=== PATIENT | female | born 1945 | race Caucasian/White ===

== ENCOUNTER 2019-10-27 13:06 | Inpatient (IN) | payer MEDICARE ==
[~2019-10-27] VITALS: Ht 165.1 cm; Wt 68.0 kg
[2019-10-27] MEDS ORDERED: METF-440 PO (13:16)
[2019-10-27] MEDS ORDERED: OLAN5TAB3 PO (13:16)
[2019-10-27 13:31] LABS: BASOPHILS # (AUTO) 0.1 K/uL (0.0-8.0); BASOPHILS % (AUTO) 0.9 % (0.0-2.0); EOSINOPHILS # (AUTO) 0.2 K/uL (0.0-0.7); EOSINOPHILS % (AUTO) 2.5 % (0.0-7.0); HEMATOCRIT 41.2 % (31.2-41.9); HEMOGLOBIN 13.6 g/dL (10.9-14.3); LYMPHOCYTES # (AUTO) 2.6 K/uL (20.0-40.0); LYMPHOCYTES % (AUTO) 28.7 % (20.5-51.5); MEAN CORPUSCULAR HEMOGLOBIN 29.9 uug (24.7-32.8); MEAN CORPUSCULAR HGB CONC 33 g/dL (32.3-35.6); MEAN CORPUSCULAR VOLUME 90.4 fL (75.5-95.3); MONOCYTES # (AUTO) 0.7 K/uL (2.0-10.0); MONOCYTES % (AUTO) 7.4 % (0.0-11.0); NEUTROPHILS # (AUTO) 5.4 K/uL (1.8-8.9); NEUTROPHILS % (AUTO) 60.5 % (38.5-71.5); PLATELET COUNT (AUTO) 383 K/uL (179-408); RED BLOOD CELL COUNT(AUTO) 4.56 MIL/uL (3.63-4.92); WHITE BLOOD COUNT (AUTO) 8.9 K/uL (3.8-11.8)
[2019-10-27 13:39] LABS: ALANINE AMINOTRANSFERASE 16 U/L (14-59); ALKALINE PHOSPHATASE 97 U/L (50-136); ASPARTATE AMINOTRANSFERASE 7 U/L (15-37); BILIRUBIN,DIRECT < 0.1 mg/dL (0.0-0.2); BILIRUBIN,TOTAL 0.2 mg/dL (0.2-1.0); CARBON DIOXIDE 30 mmol/L (21-32); CHLORIDE 104 mmol/L (98-107); GLUCOSE 269 mg/dL (74-106); POTASSIUM 3.9 mmol/L (3.5-5.1); TOTAL PROTEIN, SERUM 7.2 g/dL (6.4-8.2); UREA NITROGEN, BLOOD 13 mg/dL (7-18)
[2019-10-27 13:40] LABS: ETHANOL < 3 MG/DL (0-0)
--- NOTE | 2019-10-27 13:41 | NUR ---
PT IS IN ROOM #1B. DR CHAMBERS EVALUATED THE PT.
[2019-10-27 13:48] LABS: THYROID STIMULATING HORMONE 3.431 mIU/mL (0.358-3.740)
[2019-10-27 14:48] LABS: *BILIRUBIN,URIN NEGATIVE (NEGATIVE); *BLOOD, URINE NEGATIVE (NEGATIVE); *CLARITY,URINE CLEAR (CLEAR); *COLOR,URINE YELLOW (YELLOW); *KETONES,URINE NEGATIVE (NEGATIVE); *UROBILINOGEN,URINE 0.2 E.U./dl (NORMAL); LEUKOCYTE ESTERASE ,URINE NEGATIVE (NEGATIVE); NITRITE, URINE NEGATIVE (NEGATIVE)
[2019-10-27 14:52] LABS: UGLUCOSE 1+ (NEGATIVE)
[2019-10-27 15:03] LABS: *AMPHETAMINE, URINE NEGATIVE (NEGATIVE); *BARBITURATE, URINE NEGATIVE (NEGATIVE); *CANNABINOID, URINE NEGATIVE (NEGATIVE); *COCCAINE, URINE NEGATIVE (NEGATIVE); *OPIATE, URINE NEGATIVE (NEGATIVE); *PHENCYCLIDINE SCREEN,URINE NEGATIVE (NEGATIVE)
[2019-10-27] MEDS ORDERED: BLOOD SUGAR DIAGNOSTIC 1 EACH STRIP VI ONE (15:30)
[2019-10-27] MEDS ORDERED: MAGNESIUM HYDROXIDE 30 ML LIQUID UDC PO PRN (15:30)
[2019-10-27] MEDS ORDERED: MAG HYDROX/AL HYDROX/SIMETH 30 ML LIQUID UDC PO PRN (15:30)
--- NOTE | 2019-10-27 15:56 | NUR ---
REPORT WAS GIVEN TO RN MHU. PT WAS TRANSFERED TO MHU ROOM #141A.
[2019-10-27 16:15] VITALS: BP 108/76
--- NOTE | 2019-10-27 16:45 | NUR ---
Pt was admitted from ER at 1615 via wheelchair. Pt came to [facility] due to paranoia and believing that nery is after her and wanting to harm unknown people. Upon admission, patient is cooperative, confirms paranoia saying that someone named Yaya is sitting on her back and performs black magic on her burning her back. Pt states that it has been happening for 25 weeks. and that no one can see him, but she knows that he is there. Pt was cooperative with admission process. Skin is intact. Pt declined notification of next of kin. Dr. Carlos was notified.
[2019-10-27] MEDS: METFORMIN HCL 500 MG TABLET PO SCH (18:07)
--- NOTE | 2019-10-27 20:00 | NUR ---
received patient in her room in bed. she is noted awake A/O x 3. Able to ambulate with steady gait and able to make her needs know. Upon interview, patient stated that she is here in the hospital because, "I had a nerve brake down" and she needed help. she also, added that "I can read minds". patient noted calm at this time, but delusional and responding to internal stimuli. V/S stable at this time. patient is reassured for her safety. safety and fall precaution in place: bed at lowest position with wheels locked and room free from clutter and well-lit and frequents head checks. will [id number] to monitor.
[2019-10-27 20:12] VITALS: BP 138/57
[2019-10-28 07:30] VITALS: BP 131/67
[2019-10-28 07:34] LABS: BILIRUBIN,TOTAL 0.5 mg/dL (0.2-1.0); CREATININE 1.1 mg/dL (0.6-1.3); TOTAL PROTEIN, SERUM 7.7 g/dL (6.4-8.2)
[2019-10-28] MEDS: METFORMIN HCL 500 MG TABLET PO SCH ×2 (09:06→18:37)
--- NOTE | 2019-10-28 11:33 | NUR ---
FAMILY CONTACT: SW spoke with pts friend Mariely ([phone]) for collateral information and treatment/discharge planning. Per friend she states she has been pts friend for 19 years and states she is the only person pt has in her life. She states that pts 10 years ago and states that pt has been living alone since then. 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 She states that she moved in with pt in May for 2 weeks to help pt with ADL's but states that after she moved in pt began acting "weird" and began accusing her of stealing and stating that people were following her. Mariely states that pt ran out of her medication recently and that is when she became more psychotic and states she is the one who brought pt to the hospital. Per friend she wishes for pt to return home under her care and states she she will pick pt up from the hospital and transport home. Mariely states pt is under the care of psychiatrist Dr. Lalito Vargas [address] [facility] [address] [address] Long Toledo [address] [facility] [address], [place] [address] .
--- NOTE | 2019-10-28 12:03 | NUR ---
INITIAL DISCHARGE PLAN: Per friend Mariely ([phone]) she wishes for pt to return home [address] [facility] [address] under her care. Friend will pick pt up and transport home. SW will help form a safe and proper discharge in collaboration with .
[2019-10-28] MEDS ORDERED: DEXTROSE 50% 50 ML DISP.SYRIN IV PRN (15:15)
[2019-10-28 16:39] VITALS: BP 137/61
[2019-10-28] MEDS: BLOOD SUGAR DIAGNOSTIC 1 EACH STRIP VI SCH ×2 (16:54→21:03)
[2019-10-28] MEDS: INSULIN REGULAR, HUMAN 300 UNIT/3 ML VIAL SQ PRN (20:56)
[2019-10-28] MEDS ORDERED: QUETIAPINE FUMARATE 200 MG TABLET PO SCH ×2 (21:00)
[2019-10-28 21:20] VITALS: BP 141/69
[2019-10-29] MEDS: BLOOD SUGAR DIAGNOSTIC 1 EACH STRIP VI SCH ×4 (06:50→21:42)
[2019-10-29 07:30] VITALS: BP 135/73
[2019-10-29] MEDS: INSULIN REGULAR, HUMAN 300 UNIT/3 ML VIAL SQ PRN ×2 (08:29→11:40)
[2019-10-29] MEDS: METFORMIN HCL 500 MG TABLET PO SCH ×2 (08:44→18:09)
[2019-10-29 15:36] VITALS: BP 147/67
[2019-10-29 20:00] VITALS: BP 157/88
[2019-10-29] MEDS: QUETIAPINE FUMARATE 200 MG TABLET PO SCH (21:32)
[2019-10-29] MEDS: TEMAZEPAM 7.5 MG CAPSULE PO PRN (21:42)
[2019-10-30] MEDS: BLOOD SUGAR DIAGNOSTIC 1 EACH STRIP VI SCH ×4 (06:58→21:51)
[2019-10-30 07:30] VITALS: BP 100/65
[2019-10-30] MEDS: INSULIN REGULAR, HUMAN 300 UNIT/3 ML VIAL SQ PRN ×2 (08:21→11:55)
[2019-10-30] MEDS: METFORMIN HCL 500 MG TABLET PO SCH ×2 (08:23→17:39)
[2019-10-30 16:00] VITALS: BP 115/61
[2019-10-30 20:00] VITALS: BP 123/58
[2019-10-30] MEDS: QUETIAPINE FUMARATE 200 MG TABLET PO SCH (21:38)
[2019-10-30] MEDS: TEMAZEPAM 7.5 MG CAPSULE PO PRN (21:39)
[2019-10-31 07:30] VITALS: BP 115/60
[2019-10-31] MEDS: BLOOD SUGAR DIAGNOSTIC 1 EACH STRIP VI SCH ×4 (07:47→20:53)
[2019-10-31] MEDS: INSULIN REGULAR, HUMAN 300 UNIT/3 ML VIAL SQ PRN ×2 (07:52→12:10)
[2019-10-31] MEDS: METFORMIN HCL 500 MG TABLET PO SCH ×2 (07:58→18:39)
[2019-10-31 15:25] VITALS: BP 120/54
--- NOTE | 2019-10-31 18:30 | NUR ---
Gps/Political Science Professor- Hesitancy in taking her metformin 1000 mg this pm, claimed it was different shapes, and it taste salty, informed and explained to patient it comes in diff, shapes depending on the maker ,was able to take med. after prompting.
[2019-10-31 20:32] VITALS: BP 147/74
[2019-10-31] MEDS: QUETIAPINE FUMARATE 200 MG TABLET PO SCH (20:53)
[2019-10-31] MEDS: TEMAZEPAM 7.5 MG CAPSULE PO PRN (22:52)
--- NOTE | 2019-11-01 06:05 | NUR ---
Patient slept 7.45 hours last night. Prior to going to bed , patient c/o being hungry and was given food. No behavioral issues during the night. Continuing to monitor for safety, blood glucose and behavioral issues.
[2019-11-01] MEDS: BLOOD SUGAR DIAGNOSTIC 1 EACH STRIP VI SCH ×4 (06:28→20:33)
[2019-11-01 07:05] LABS: BASOPHILS # (AUTO) 0.1 K/uL (0.0-8.0); BASOPHILS % (AUTO) 1.2 % (0.0-2.0); EOSINOPHILS # (AUTO) 0.3 K/uL (0.0-0.7); EOSINOPHILS % (AUTO) 4.4 % (0.0-7.0); HEMATOCRIT 39.4 % (31.2-41.9); HEMOGLOBIN 12.9 g/dL (10.9-14.3); LYMPHOCYTES # (AUTO) 2.2 K/uL (20.0-40.0); LYMPHOCYTES % (AUTO) 39.1 % (20.5-51.5); MEAN CORPUSCULAR HEMOGLOBIN 29.7 uug (24.7-32.8); MEAN CORPUSCULAR HGB CONC 33 g/dL (32.3-35.6); MEAN CORPUSCULAR VOLUME 90.7 fL (75.5-95.3); MONOCYTES # (AUTO) 0.4 K/uL (2.0-10.0); MONOCYTES % (AUTO) 7.4 % (0.0-11.0); NEUTROPHILS # (AUTO) 2.7 K/uL (1.8-8.9); NEUTROPHILS % (AUTO) 47.9 % (38.5-71.5); PLATELET COUNT (AUTO) 294 K/uL (179-408); RED BLOOD CELL COUNT(AUTO) 4.34 MIL/uL (3.63-4.92); WHITE BLOOD COUNT (AUTO) 5.6 K/uL (3.8-11.8)
[2019-11-01 07:25] LABS: CREATININE 0.9 mg/dL (0.6-1.3); MAGNESIUM 1.6 mg/dL (1.8-2.4); PHOSPHOROUS 4.1 mg/dL (2.5-4.9); POTASSIUM 4.1 mmol/L (3.5-5.1)
[2019-11-01 07:30] VITALS: BP 135/57
[2019-11-01] MEDS: METFORMIN HCL 500 MG TABLET PO SCH ×2 (08:26→17:40)
[2019-11-01] MEDS ORDERED: MAGNESIUM OXIDE 400 MG TABLET PO ONE (10:30)
[2019-11-01 15:49] VITALS: BP 143/56
[2019-11-01] MEDS: INSULIN REGULAR, HUMAN 300 UNIT/3 ML VIAL SQ PRN ×2 (16:37→20:36)
[2019-11-01 20:00] VITALS: BP 134/60
[2019-11-01] MEDS: QUETIAPINE FUMARATE 200 MG TABLET PO SCH (20:24)
[2019-11-02] MEDS: BLOOD SUGAR DIAGNOSTIC 1 EACH STRIP VI SCH ×4 (06:32→20:59)
[2019-11-02 07:50] VITALS: BP 113/62
[2019-11-02] MEDS: METFORMIN HCL 500 MG TABLET PO SCH ×2 (08:12→18:57)
[2019-11-02 15:15] VITALS: BP 121/49
[2019-11-02] MEDS: INSULIN REGULAR, HUMAN 300 UNIT/3 ML VIAL SQ PRN (16:30)
[2019-11-02 20:31] VITALS: BP 133/63
[2019-11-02] MEDS: QUETIAPINE FUMARATE 200 MG TABLET PO SCH (21:00)
[2019-11-02] MEDS: MIRTAZAPINE 15 MG TABLET PO SCH (21:01)
[2019-11-03] MEDS: TEMAZEPAM 7.5 MG CAPSULE PO PRN ×2 (03:00→22:18)
--- NOTE | 2019-11-03 05:07 | NUR ---
GPS: RECEIVED PT UP IN NURSING STATION, ANGRY AT STAFFS FOR NO APPARENT REASON. PT PACING BACK AND FORTH. VERBALLY ABLE TO MAKE SOME NEEDS KNOWN BUT DISORGANIZED THOUGHT PROCESS AND POOR INSIGHT. REDIRECTED AND FREQUENT REALITY CHECKED DONE. PT WAS COOPERATIVE WITH DUE MEDICATIONS AND REQUESTED FOR SLEEPING AID BECAUSE SHE CAN NOT SLEEP. ADMINISTERED ORDER AND NOTED EFFECTIVENESS. CONTINUE MONITOR PT AND NO NEW BEHAVIOR NOTED.
[2019-11-03] MEDS: BLOOD SUGAR DIAGNOSTIC 1 EACH STRIP VI SCH ×4 (07:04→20:20)
[2019-11-03 07:30] VITALS: BP 136/53
--- NOTE | 2019-11-03 08:00 | NUR ---
GPS: RECEIVED PATIENT AOX3. PATIENT DENIES ANY SI AND HI, PATIENT STILL VERBALIZES ABOUT HER DELUSION AND SOMEWHAT PARANOID ABOUT THE SOLOMON ISLANDER MAFIA , PATIENT QUIET, REDIRECTABLE, COMPLIANT WITH MEDICATION, ATE HER BREAKFAST ATTENDED GROUP ACTIVITIES, WILL CONTINUE MONITOR
[2019-11-03] MEDS: METFORMIN HCL 500 MG TABLET PO SCH ×2 (08:37→17:35)
[2019-11-03] MEDS: INSULIN REGULAR, HUMAN 300 UNIT/3 ML VIAL SQ PRN ×2 (11:35→16:06)
--- NOTE | 2019-11-03 12:14 | NUR ---
FRIEND CONTACT: MATT spoke with pts friend Mariely ([phone]) and provided her with updated information.
[2019-11-03 16:05] VITALS: BP 129/60
[2019-11-03 20:05] VITALS: BP 129/69
[2019-11-03] MEDS: QUETIAPINE FUMARATE 200 MG TABLET PO SCH ×2 (20:20→21:25)
[2019-11-03] MEDS: MIRTAZAPINE 15 MG TABLET PO SCH (20:20)
[2019-11-03] MEDS: QUETIAPINE FUMARATE 25 MG TABLET PO SCH ×2 (20:20→21:26)
[2019-11-03] MEDS ORDERED: QUETIAPINE FUMARATE 200 MG TABLET PO SCH (21:00)
[2019-11-04] MEDS: BLOOD SUGAR DIAGNOSTIC 1 EACH STRIP VI SCH ×5 (06:31→20:23)
--- NOTE | 2019-11-04 06:48 | NUR ---
PT SLEPT 7 H. PT REFUSED HER REMERON MEDICATION. REMERON WASTED IN THE PYXIS. PT AT FIRST REFUSED HER SEROQUEL AND AFTER A WHILE WANTS IT SO ON THE EMAR IT WAS NOTED UNDO FOR THE NON-ADMINISTERED . PT TOOK THE SEROQUEL. PT TOOK RESTORIL AT 2218H PER PT REQUEST. PT IN NO ACUTE DISTRESS. PT SOMEWHAT ANXIOUS AND PARANOID ON HER MEDICATIONS. PT NEEDS REORIENTATION. PT MOOD WAS IRRITABLE. AFFECT IS LABILE . JUDGEMENT IS POOR. BLOO SUGAR WAS 118 AND 102. SAFETY AND COMFORT PROVIDED. WILL ENDORSE TO INCOMING NURSE.
[2019-11-04 07:30] VITALS: BP 111/62
--- NOTE | 2019-11-04 08:00 | NUR ---
GPS: received patient AOx2, patient paranoid delusional, responding to internal stimuli, patient able to do her ADL, no distress at this time
[2019-11-04] MEDS: METFORMIN HCL 500 MG TABLET PO SCH ×2 (08:14→17:48)
[2019-11-04] MEDS: INSULIN REGULAR, HUMAN 300 UNIT/3 ML VIAL SQ PRN (11:28)
--- NOTE | 2019-11-04 16:01 | NUR ---
MATT Coordination of Care: SW called patient's Psychiatrist Dr. Lalito Vargas [address] [address] ([phone]) to scheduled aftercare appointment and was informed that this doctor terminated services with the patient.
[2019-11-04 16:47] VITALS: BP 146/64
--- NOTE | 2019-11-04 18:06 | NUR ---
patient been compliant, no distress, patient took her medication compliant ,
[2019-11-04] MEDS: MIRTAZAPINE 15 MG TABLET PO SCH (20:10)
[2019-11-04] MEDS: QUETIAPINE FUMARATE 200 MG TABLET PO SCH (20:11)
[2019-11-04 20:59] VITALS: BP 167/68
--- NOTE | 2019-11-04 21:20 | NUR ---
Patient had BS:135 on Accucheck @2100. Refused 2 units insulin coverage. Risks and benefits explained, still refused. Continue to monitor.
[2019-11-04] MEDS: TEMAZEPAM 7.5 MG CAPSULE PO PRN (21:39)
--- NOTE | 2019-11-04 22:33 | NUR ---
Received patient in bed, AAO x3. Depressed mood. Calm and cooperative. No behavioral issues. Denies SI. Compliant with medication. Continue to monitor.
[2019-11-05] MEDS: ACETAMINOPHEN 325 MG TABLET PO PRN ×2 (05:25→14:06)
[2019-11-05] MEDS: BLOOD SUGAR DIAGNOSTIC 1 EACH STRIP VI SCH ×4 (06:37→20:49)
[2019-11-05 07:30] VITALS: BP 144/69
[2019-11-05] MEDS: METFORMIN HCL 500 MG TABLET PO SCH ×2 (08:35→18:41)
[2019-11-05] MEDS: INSULIN REGULAR, HUMAN 300 UNIT/3 ML VIAL SQ PRN ×2 (12:11→20:52)
--- NOTE | 2019-11-05 14:50 | NUR ---
MATT Individual Therapy Note: SW met with patient for brief individual counseling to address patient's persecutory delusions. Patient presents paranoid and delusional. Patient is mostly seen in the dining room coloring and drawing. Patient makes poor eye contact and refuses to engage in a conversation with this song writer. SW attempted to engage patient by asking her how she is doing, however patient is selectively mute and does not respond.
[2019-11-05 16:00] VITALS: BP 124/70
--- NOTE | 2019-11-05 16:16 | NUR ---
Received Pt in dinning room working on art project, AAO x3, no acute distress noted, able to make needs known. Pleasant upon approach, calm, and cooperative with taking medications, refusing morning coverage of insulin but accepting afternoons. No behavioral issues, able to CFS and denies SI and HI. Reported back pain related to Sciatica, Tylenol administered per PRN orders. Reported effective. Will continue to monitor for safety.
[2019-11-05 20:00] VITALS: BP 118/51
[2019-11-05] MEDS: MIRTAZAPINE 15 MG TABLET PO SCH (20:49)
[2019-11-05] MEDS: QUETIAPINE FUMARATE 200 MG TABLET PO SCH (20:49)
[2019-11-06] MEDS: BLOOD SUGAR DIAGNOSTIC 1 EACH STRIP VI SCH ×4 (06:37→20:58)
--- NOTE | 2019-11-06 06:45 | NUR ---
Patient sleeping intermittently arousing to verbal response. Patient compliant with medication. slept for 7hrs during the shift . BS check done with the result 149.No behaviral problems noted. Took shower in the AM
[2019-11-06 07:30] VITALS: BP 118/50
[2019-11-06] MEDS: METFORMIN HCL 500 MG TABLET PO SCH ×3 (08:01→17:30)
[2019-11-06] MEDS: INSULIN REGULAR, HUMAN 300 UNIT/3 ML VIAL SQ PRN ×3 (08:06→21:09)
[2019-11-06] MEDS: ACETAMINOPHEN 325 MG TABLET PO PRN (15:43)
[2019-11-06 16:13] VITALS: BP 163/66
--- NOTE | 2019-11-06 17:52 | NUR ---
no acute distress noted, no agitated behavior noted, denied suicidal thoughts, participated with adls and activities.
[2019-11-06] MEDS: MIRTAZAPINE 15 MG TABLET PO SCH (20:30)
[2019-11-06] MEDS ORDERED: QUETIAPINE FUMARATE 100 MG TABLET PO SCH (21:00)
[2019-11-06] MEDS: TEMAZEPAM 7.5 MG CAPSULE PO PRN (21:02)
[2019-11-07] MEDS: BLOOD SUGAR DIAGNOSTIC 1 EACH STRIP VI SCH ×4 (06:30→20:41)
[2019-11-07 07:30] VITALS: BP 103/55
--- NOTE | 2019-11-07 08:00 | NUR ---
GPS: received patient AOx2, patient delusional, paranoid, patient today refused her metformin, even after educating the benefits patient refuse it, md luo
[2019-11-07] MEDS: METFORMIN HCL 500 MG TABLET PO SCH ×3 (08:07→17:31)
[2019-11-07] MEDS: INSULIN REGULAR, HUMAN 300 UNIT/3 ML VIAL SQ PRN ×2 (11:47→20:43)
[2019-11-07 16:00] VITALS: BP 152/64
--- NOTE | 2019-11-07 18:14 | NUR ---
patient been calm, doing her artwork in the dining room, patient refused her metformin, no distress at this time
[2019-11-07 20:00] VITALS: BP 146/71
[2019-11-07] MEDS: MIRTAZAPINE 15 MG TABLET PO SCH (20:41)
[2019-11-07] MEDS: QUETIAPINE FUMARATE 200 MG TABLET PO SCH (20:41)
[2019-11-08] MEDS: TEMAZEPAM 7.5 MG CAPSULE PO PRN (01:45)
[2019-11-08] MEDS: BLOOD SUGAR DIAGNOSTIC 1 EACH STRIP VI SCH ×4 (06:41→20:00)
[2019-11-08 07:30] VITALS: BP 150/69
--- NOTE | 2019-11-08 08:00 | NUR ---
GPS: patient AOx2, patient seen in the dining room doing artwork, patient refused her metformin, however compliant with insulin, patient denies SI and HI, no distress at this time
[2019-11-08] MEDS: INSULIN REGULAR, HUMAN 300 UNIT/3 ML VIAL SQ PRN ×4 (08:13→20:00)
[2019-11-08] MEDS: METFORMIN HCL 500 MG TABLET PO SCH ×2 (09:00→17:56)
--- NOTE | 2019-11-08 15:01 | NUR ---
MATT Individual Therapy Note: SW met with patient for brief individual counseling to address patient's persecutory delusions. Patient continues to present with paranoid and delusional thought process. SW attempted to engage with patient, however patient is only focused on coloring and drawing and did not acknowledge this junior copywriter.
[2019-11-08 15:38] VITALS: BP 127/63
--- NOTE | 2019-11-08 18:21 | NUR ---
patient been working on her artwork, patient calm cooperative, refused her metformin, MD aware, patient compliant with insulin, patient of her DC planning and been cooperative, will continue monitor
[2019-11-08 20:00] VITALS: BP 145/73
[2019-11-08] MEDS: QUETIAPINE FUMARATE 200 MG TABLET PO SCH (20:01)
[2019-11-08] MEDS: MIRTAZAPINE 15 MG TABLET PO SCH (20:01)
--- NOTE | 2019-11-08 20:59 | NUR ---
Received pt watching tv in the dining room. No acute distress noted. No complaints of pain/ discomfort. Denies SI/HI. Accucheck 175, but pt refused insulin. Pt stated that she's been getting too much insulin in a day and it's too much for her. Safety measures maintained. Will continue to monitor.
[2019-11-09] MEDS: BLOOD SUGAR DIAGNOSTIC 1 EACH STRIP VI SCH ×4 (06:30→20:24)
[2019-11-09 07:30] VITALS: BP 128/60
--- NOTE | 2019-11-09 08:00 | NUR ---
Social Work Discharge Note: Patient will be discharged back home [address] [place] [address]. Patients friend, Mariely ([phone]) will provide transportation for the patient back home at 5PM. Patient presents with appropriate mood and congruent affect. Patient is aware and agreeable with discharge plan. Patient denies suicidal or homicidal ideation. Patient is referred to [facility] [address] [place] [address] ([phone]) for psychiatry services and has an appointment scheduled on November 15, 2019 at 1PM for intake evaluation with Bruna nursing supervisor type photography. Patient will be following up with her (Media Manager) Dr. Long Toledo [address] [place] [phone] ([phone]) and has an appointment scheduled on November 17, 2019 at 2:30PM. Patient is also referred to [facility]. ( ).
[2019-11-09] MEDS: METFORMIN HCL 500 MG TABLET PO SCH ×2 (08:07→18:30)
--- NOTE | 2019-11-09 15:43 | NUR ---
will be discharged Patient back home today . Patients friend, Mariely will provide transportation for the patient back home at 5PM. . Patient is aware and agreeable with discharge plan. Patient denies suicidal or homicidal ideation. vital sign stable all personal belonging taken by patient.
[2019-11-09 16:36] VITALS: BP 158/86
--- NOTE | 2019-11-09 18:23 | NUR ---
patient's friend Mariely here to orange picker machine operator patient, patient become agitated aggressive and psychotic refused to go home with her friend.verbally abused toward to her friend.Dr. Carlos notified and D/C discharged.
--- NOTE | 2019-11-09 18:31 | NUR ---
patient paranoid and delusional, patient verbalizes that "she is the one who put me in this hospital i will not with her, call CP." when asked whose CP is patient cannot recall, and cannot give detail of that person, patient start bbeing beligerent and paranoid saying that the tree gabriel will just pick her up, patient was sent back to her room and called Dr. Carlos about the matter, Dr. Carlos DC the discharge order , patient stays in her room and was aware of the order
[2019-11-09] MEDS: MIRTAZAPINE 15 MG TABLET PO SCH (20:11)
[2019-11-09] MEDS: QUETIAPINE FUMARATE 200 MG TABLET PO SCH (20:11)
[2019-11-09 20:37] VITALS: BP 160/72
[2019-11-09] MEDS: INSULIN REGULAR, HUMAN 300 UNIT/3 ML VIAL SQ PRN (20:43)
--- NOTE | 2019-11-10 06:32 | NUR ---
Pt slept 6.15 hrs. Refused shower in am. Blood sugar 151.
[2019-11-10] MEDS: BLOOD SUGAR DIAGNOSTIC 1 EACH STRIP VI SCH ×4 (06:37→20:20)
[2019-11-10 07:30] VITALS: BP 135/57
[2019-11-10] MEDS: QUETIAPINE FUMARATE 100 MG TABLET PO SCH (08:52)
[2019-11-10] MEDS: INSULIN REGULAR, HUMAN 300 UNIT/3 ML VIAL SQ PRN ×4 (08:54→20:23)
[2019-11-10] MEDS: METFORMIN HCL 500 MG TABLET PO SCH ×2 (08:57→17:42)
[2019-11-10 16:00] VITALS: BP 153/58
[2019-11-10] MEDS: HALOPERIDOL 5 MG TABLET PO SCH ×2 (16:14→17:41)
[2019-11-10 20:00] VITALS: BP 138/71
[2019-11-10] MEDS: MIRTAZAPINE 15 MG TABLET PO SCH (20:18)
[2019-11-10] MEDS: QUETIAPINE FUMARATE 200 MG TABLET PO SCH (20:18)
--- NOTE | 2019-11-10 21:00 | NUR ---
Patient alert x2 ,ambulates in the hallway, appears calm, compliant with medication, BS checked and insulin per sliding scale given, then patient asked for phone to make call phones to someone stated "I dont' feel safe here"Redirected Patient and Restoril given per Patient request .Will continue to monitor.
[2019-11-10] MEDS: TEMAZEPAM 7.5 MG CAPSULE PO PRN (23:06)
[2019-11-11] MEDS: BLOOD SUGAR DIAGNOSTIC 1 EACH STRIP VI SCH ×4 (06:52→20:15)
--- NOTE | 2019-11-11 07:01 | NUR ---
Patient slept 5 hrs. No behaviors issues noted.BS 190
[2019-11-11 07:30] VITALS: BP 114/48
[2019-11-11] MEDS: QUETIAPINE FUMARATE 100 MG TABLET PO SCH (08:49)
[2019-11-11] MEDS: HALOPERIDOL 5 MG TABLET PO SCH ×2 (08:49→16:53)
[2019-11-11] MEDS: METFORMIN HCL 500 MG TABLET PO SCH ×2 (08:49→16:58)
[2019-11-11] MEDS: INSULIN REGULAR, HUMAN 300 UNIT/3 ML VIAL SQ PRN ×3 (08:52→20:26)
--- NOTE | 2019-11-11 13:08 | NUR ---
MATT Individual Therapy Note: SW met with patient for brief individual counseling to address patient's persecutory delusions. Patient continues to present with paranoid and delusional thought process. SW attempted to engage with patient, patient has been focused on drawing. Patient continues to state that she will go home to the "[place]". This automobile and property underwriter actively listened.
[2019-11-11 15:21] VITALS: BP 133/58
--- NOTE | 2019-11-11 16:59 | NUR ---
Gps/Casing Mixer- Patient refusing to take metformin, claimed she takes Januvia at home..Remain guarded, flat affect, attended her group therapy, likes to do arts per pt.
[2019-11-11 20:00] VITALS: BP 132/60
[2019-11-11] MEDS: QUETIAPINE FUMARATE 200 MG TABLET PO SCH (20:15)
[2019-11-11] MEDS: MIRTAZAPINE 15 MG TABLET PO SCH (20:15)
[2019-11-12 01:43] VITALS: BP 132/60
[2019-11-12] MEDS: BLOOD SUGAR DIAGNOSTIC 1 EACH STRIP VI SCH ×4 (06:43→20:26)
[2019-11-12 07:30] VITALS: BP 114/62
[2019-11-12] MEDS: QUETIAPINE FUMARATE 100 MG TABLET PO SCH (08:24)
[2019-11-12] MEDS: HALOPERIDOL 5 MG TABLET PO SCH ×2 (08:24→16:29)
[2019-11-12] MEDS: METFORMIN HCL 500 MG TABLET PO SCH ×2 (08:25→17:53)
[2019-11-12] MEDS: INSULIN REGULAR, HUMAN 300 UNIT/3 ML VIAL SQ PRN ×3 (11:27→20:30)
[2019-11-12 16:00] VITALS: BP 115/61
--- NOTE | 2019-11-12 17:00 | NUR ---
Gps/Extended Insurance Clerk- Interactrive with the staff, making her needs known, stayed in the activity room most of the time, likes to draw, do coloring.Still refusing to take metformin, claimed will not take it ever, she takes januvia at home, will resume taking when she gets home per pt.
[2019-11-12 20:00] VITALS: BP 146/57
[2019-11-12] MEDS: MIRTAZAPINE 15 MG TABLET PO SCH (20:30)
[2019-11-12] MEDS: QUETIAPINE FUMARATE 200 MG TABLET PO SCH (20:30)
[2019-11-12] MEDS: TEMAZEPAM 7.5 MG CAPSULE PO PRN (21:14)
[2019-11-13] MEDS: CLONAZEPAM 0.5 MG TABLET PO PRN ×2 (01:33→21:02)
--- NOTE | 2019-11-13 06:46 | NUR ---
Patient had difficulty falling asleep and then staying asleep. Medicated per order, patient was up a few times at the nurses station asking for " Ice and water and a straw" then " a comb". then " Something to help me go back to sleep. Patient c/o the bed being wet, but when checked by documentation writer it was dry. Total sleep was 7 hours and patient got up early and is watching TV. No distress or issues noted at this time.
[2019-11-13] MEDS: BLOOD SUGAR DIAGNOSTIC 1 EACH STRIP VI SCH ×4 (06:52→21:02)
[2019-11-13 07:30] VITALS: BP 115/42
[2019-11-13] MEDS: HALOPERIDOL 5 MG TABLET PO SCH ×2 (08:19→17:01)
[2019-11-13] MEDS: METFORMIN HCL 500 MG TABLET PO SCH ×2 (08:19→18:30)
[2019-11-13] MEDS: QUETIAPINE FUMARATE 100 MG TABLET PO SCH (08:20)
[2019-11-13] MEDS: INSULIN REGULAR, HUMAN 300 UNIT/3 ML VIAL SQ PRN ×2 (12:21→17:00)
[2019-11-13 16:00] VITALS: BP 123/62
[2019-11-13] MEDS: MIRTAZAPINE 15 MG TABLET PO SCH (21:01)
[2019-11-13] MEDS: QUETIAPINE FUMARATE 200 MG TABLET PO SCH (21:01)
[2019-11-13] MEDS: ACETAMINOPHEN 325 MG TABLET PO PRN (21:01)
[2019-11-13 21:35] VITALS: BP 149/65
[2019-11-13] MEDS: TEMAZEPAM 7.5 MG CAPSULE PO PRN (23:20)
--- NOTE | 2019-11-14 02:30 | NUR ---
RECEIVED PATIENT IN HER ROOM.FEW MINUTES LATER I SAW HER ON THE FLOOR OF THE HALLWAY. ASSESSED HER AND HELPED HER GET UP WITH NO OBVIOUS INJURY.AFTER THIS SHE SAID "I CANT DO THIS ANYMORE'. EXPRESSED PARANOID DELUSIONS OF SEEING 'A MAN ON TOP OF ME WITH SEBAS ROBINS FACE DOING BLACK MAGIC ON ME". MOOD IS LABILE. SAID TO HAVE CALLED 911 ON THE PHONE. SHE HOWEVER TOOK HER MEDICATIONS AND WENT BACK TO BED AFTER SOME SLEEP AID HAS BEEN GIVEN. BLOOD SUGAR CHECKS 130 WITH NO COVERAGE. VISUAL CHECKS MADE ON HER FOR SAFETY. WILL CONTINUE TO MONITOR.
--- NOTE | 2019-11-14 06:46 | NUR ---
SLEPT FOR 6:30 HOURS.BLOOD SUGAR CHECKS 128.
[2019-11-14 07:30] VITALS: BP 137/44
[2019-11-14] MEDS: BLOOD SUGAR DIAGNOSTIC 1 EACH STRIP VI SCH ×4 (07:45→20:51)
[2019-11-14] MEDS: METFORMIN HCL 500 MG TABLET PO SCH ×2 (08:35→18:30)
[2019-11-14] MEDS: HALOPERIDOL 5 MG TABLET PO SCH ×2 (08:35→16:48)
[2019-11-14] MEDS: QUETIAPINE FUMARATE 100 MG TABLET PO SCH (08:35)
[2019-11-14] MEDS: INSULIN REGULAR, HUMAN 300 UNIT/3 ML VIAL SQ PRN ×2 (11:43→16:52)
--- NOTE | 2019-11-14 13:29 | NUR ---
Gps/Concrete Form Setter And Finisher- Attended her group therapy, likes to draw. Not interactive but making her simple needs known to the staff.
[2019-11-14 16:00] VITALS: BP 101/71
[2019-11-14] MEDS: glipiZIDE 5 MG TABLET PO SCH (16:48)
[2019-11-14] MEDS: CLONAZEPAM 0.5 MG TABLET PO PRN (18:37)
[2019-11-14 20:00] VITALS: BP 141/63
[2019-11-14] MEDS: QUETIAPINE FUMARATE 200 MG TABLET PO SCH (20:51)
[2019-11-14] MEDS: MIRTAZAPINE 15 MG TABLET PO SCH (20:51)
--- NOTE | 2019-11-15 01:05 | NUR ---
RECEIVED PATIENT IN ACTIVITY ROOM DRAWING. MOOD IS LABILE.AFFECT LOW. STILL EXPRESSES PARANOID DELUSIONS OF "EVIL MAN WANTING TO KILL ME". SHE HOWEVER TOOK HER MEDICATIONS AND WENT BACK TO BED. BLOOD SUGAR CHECKS 93. SNACKS PROVIDED. VISUAL CHECKS MADE ON HER FOR SAFETY. WILL CONTINUE TO MONITOR.
[2019-11-15] MEDS: TEMAZEPAM 7.5 MG CAPSULE PO PRN (01:50)
--- NOTE | 2019-11-15 06:33 | NUR ---
SLEPT FOR ABOUT 7HOURS. BLOOD SUGAR CHECK THIS MORNING IS 148.SHE HAS ALSO TAKEN A SHOWER.
[2019-11-15] MEDS: glipiZIDE 5 MG TABLET PO SCH (06:42)
[2019-11-15] MEDS: BLOOD SUGAR DIAGNOSTIC 1 EACH STRIP VI SCH ×2 (06:42→11:43)
[2019-11-15 07:26] LABS: BASOPHILS # (AUTO) 0.1 K/uL (0.0-8.0); BASOPHILS % (AUTO) 0.9 % (0.0-2.0); EOSINOPHILS # (AUTO) 0.2 K/uL (0.0-0.7); EOSINOPHILS % (AUTO) 3.7 % (0.0-7.0); HEMATOCRIT 38.4 % (31.2-41.9); HEMOGLOBIN 12.8 g/dL (10.9-14.3); LYMPHOCYTES # (AUTO) 2.2 K/uL (20.0-40.0); LYMPHOCYTES % (AUTO) 33.9 % (20.5-51.5); MEAN CORPUSCULAR HEMOGLOBIN 30.3 uug (24.7-32.8); MEAN CORPUSCULAR HGB CONC 33 g/dL (32.3-35.6); MEAN CORPUSCULAR VOLUME 90.9 fL (75.5-95.3); MONOCYTES # (AUTO) 0.4 K/uL (2.0-10.0); MONOCYTES % (AUTO) 6.2 % (0.0-11.0); NEUTROPHILS # (AUTO) 3.6 K/uL (1.8-8.9); NEUTROPHILS % (AUTO) 55.3 % (38.5-71.5); PLATELET COUNT (AUTO) 322 K/uL (179-408); RED BLOOD CELL COUNT(AUTO) 4.22 MIL/uL (3.63-4.92); WHITE BLOOD COUNT (AUTO) 6.6 K/uL (3.8-11.8)
[2019-11-15 07:30] VITALS: BP 118/86
[2019-11-15 08:01] LABS: BILIRUBIN,TOTAL 0.2 mg/dL (0.2-1.0); MAGNESIUM 1.8 mg/dL (1.8-2.4); PHOSPHOROUS 4.4 mg/dL (2.5-4.9); TOTAL PROTEIN, SERUM 6.4 g/dL (6.4-8.2)
[2019-11-15] MEDS: QUETIAPINE FUMARATE 100 MG TABLET PO SCH (08:16)
[2019-11-15] MEDS: HALOPERIDOL 5 MG TABLET PO SCH (08:16)
[2019-11-15] MEDS: INSULIN REGULAR, HUMAN 300 UNIT/3 ML VIAL SQ PRN (08:17)
[2019-11-15 09:00] VITALS: BP 118/86
[2019-11-15] MEDS: METFORMIN HCL 500 MG TABLET PO SCH (09:00)
[2019-11-15] MEDS ORDERED: LISINOPRIL 5 MG TABLET PO SCH (09:00)
--- NOTE | 2019-11-15 14:26 | NUR ---
Britt: Patient will be discharged back home [address] [place] [address]. Patient is provided with a Taxi voucher and will be provided with Taxi transportation today back home at 4PM. Patients friendMariely ([phone]) is made aware of discharge plan and will be meeting the patient at home upon arrival. Patient presents with appropriate mood and congruent affect. Patient is aware and agreeable with discharge plan. Patient denies suicidal or homicidal ideation. Patient is referred to [facility] [place] [address] ([phone]) for psychiatry services and has an appointment scheduled on November 15, 2019 at 1PM for intake evaluation with Bruna nursing inside plant supervisor. Patient will be following up with her Client Relation Specialist Dr. Long Toledo [address] [address] ([phone]) and has an appointment scheduled on November 17, 2019 at 2:30PM. Patient is also referred to [facility] ( ). Addendum: 11/15/19 at 1429 by FELICIANO FELICIANO Disregard Note
--- NOTE | 2019-11-15 14:29 | NUR ---
Discharge Note: Patient will be discharged back home [address] [place] [address]. Patient is provided with a Taxi voucher and will be provided with Taxi transportation today back home at 4PM. Patients friend, Mariely ([phone]) is made aware of discharge plan and will be meeting the patient at home upon arrival. Patient presents with appropriate mood and congruent affect. Patient is aware and agreeable with discharge plan. Patient denies suicidal or homicidal ideation. Patient is referred to [facility] [place] [address] ([phone]) for psychiatry services and has an appointment scheduled on November 18, 2019 at 1PM for intake evaluation with Bruna nursing supervisor blast furnace auxiliaries. Patient will be following up with her Railroad Firer/Fireman Dr. Long Toledo [address] [address] ([phone]) and has an appointment scheduled on November 17, 2019 at 2:30PM. Patient is also referred to [facility] ( ).
--- NOTE | 2019-11-15 15:05 | NUR ---
DISCHARGE NOTES: called and spoke with Dr. maddox, orders made to DC back patient to home, orders made and carried out, SW aware and home medication and instruction were given, valuables were given and signed out, patient is in good mood denies SI and HI, provided snacks upon dc
[2019-11-15] MEDS ORDERED: HALOPERIDOL 5 MG TABLET PO SCH (17:00)
== END 2019-11-15 15:23 | disposition home health service (06) | DRG 885 ==
LOC: ER 13:06 → GPS 15:16
PROVIDERS: ADMIT Psychiatry & Neurology Psychiatry; ATTEND Nurse Practitioner Acute Care
DX: F20.0 Paranoid schizophrenia (principal); E11.65 Type 2 diabetes mellitus with hyperglycemia; F29 Unspecified psychosis not due to a substance or known physiological condition; Z79.84 Long term (current) use of oral hypoglycemic drugs; E83.42 Hypomagnesemia; G47.00 Insomnia, unspecified; Z73.6 Limitation of activities due to disability; I70.0 Atherosclerosis of aorta
CPT/HCPCS: 36415; 71045; 80307; 83735; 84100; 84443; 85025; 93005; A4663; G0480; J1815